=== PATIENT | male | born 1975 | race Hispanic/Latino ===

== ENCOUNTER 2018-11-10 08:47 | Outpatient (CLI) | payer OTHER ==
--- NOTE | 2018-11-10 09:01 | RAD ---
XR Lumbar Spine 2 Or 3 View: 11/10/2018 12:00 AM CLINICAL INDICATION: Pain COMPARISON: None. FINDINGS: Fracture:No fracture. Arthropathy:None of significance. Incidental findings:None of significance. IMPRESSION: 1. No acute osseous abnormality.
== END 2018-11-10 08:48 | disposition home or self-care (01) ==
LOC: RAD-FRANK 08:47
PROVIDERS: ATTEND Nurse Practitioner Family
DX: S39.012A Strain of muscle, fascia and tendon of lower back, initial encounter (principal)
CPT/HCPCS: 72100